=== PATIENT | male | born 1985 | race Caucasian/White ===

== ENCOUNTER 2019-07-05 21:25 | Emergency (ER) | payer SELFPAY ==
[2019-07-05] MEDS ORDERED: Diphtheria,Pertussis(Acell),Tetanus Vaccine 0.5 ML SDV IM ONE (21:53)
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
== END 2019-07-05 22:14 | disposition home or self-care (01) ==
LOC: FB.ED 21:25
DX: S00.01XA Abrasion of scalp, initial encounter (principal); S10.91XA Abrasion of unspecified part of neck, initial encounter; F10.129 Alcohol abuse with intoxication, unspecified; Z23 Encounter for immunization; Y04.0XXA Assault by unarmed brawl or fight, initial encounter
CPT/HCPCS: 90471; 90715; 99282; 99283